=== PATIENT | male | born 1985 | race Caucasian/White ===

== ENCOUNTER 2019-08-02 19:22 | Emergency (ER) | payer MEDICAID, OTHER ==
[~2019-08-02] VITALS: Ht 190.5 cm; Wt 95.3 kg
[2019-08-02 19:28] VITALS: BP 161/80
--- NOTE | 2019-08-02 19:58 | NUR ---
PT TAKEN TO BED 2
[2019-08-02 20:07] VITALS: BP 161/80
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
--- NOTE | 2019-08-02 20:30 | NUR ---
MD AT BEDSIDE TO ASSESS PATIENT.
[2019-08-02] MEDS ORDERED: ACETAMINOPHEN EXTRA STRENGTH 500 MG TAB PO ONE (20:40)
== END 2019-08-02 21:06 | disposition home or self-care (01) ==
LOC: MED 19:22
DX: S29.012A Strain of muscle and tendon of back wall of thorax, initial encounter (principal); V89.2XXA Person injured in unspecified motor-vehicle accident, traffic, initial encounter; Y93.89 Activity, other specified; Y92.89 Other specified places as the place of occurrence of the external cause; Y99.8 Other external cause status
CPT/HCPCS: 99282